=== PATIENT | female | born 1995 | race Caucasian/White ===

== ENCOUNTER 2022-02-08 21:22 | Emergency (ER) | payer OTHER, MEDICAID, SELFPAY ==
[2022-02-08 21:27] VITALS: BP 126/63; PULSE 85; RESP 18; TEMP 36.9; O2SAT 100
--- NOTE | 2022-02-08 21:30 | DI.RAD.S_ITS ---
PROCEDURE: XR HIP W PEL IF DONE LT 2V INDICATIONS: trauma TECHNIQUE: AP pelvis with lateral view of the left hip. COMPARISON: None. FINDINGS: Bones: No displaced fractures or dislocations. Pelvic ring appears intact. No suspicious bony lesions. Soft tissues: The visualized bowel gas pattern is normal. No suspicious soft tissue calcifications. An IUD is present in the pelvis. IMPRESSION: 1. No displaced fracture or dislocation. Dictated by: Chico Blum M.D. on 02/08/2022 at 22:28 Approved by: Chico Blum M.D. on 02/08/2022 at 22:29
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
[2022-02-08] MEDS: IBUPROFEN 400 MG TABLET 800 MG PO (23:24)
== END 2022-02-08 23:33 | disposition home or self-care (01) ==
PROVIDERS: Emergency Provider Emergency Medicine
DX: S70.02XA Contusion of left hip, initial encounter (principal); V13.4XXA Pedal cycle driver injured in collision with car, pick-up truck or van in traffic accident, initial encounter
CPT/HCPCS: 73502; 99283

== ENCOUNTER 2023-05-23 14:46 | Emergency (ER) | payer OTHER, MEDICAID, SELFPAY ==
[2023-05-23 14:50] VITALS: BP 130/76; PULSE 102; RESP 17; TEMP 37.2; O2SAT 95; BMI 32.8
[2023-05-23 15:57] VITALS: BP 125/76; PULSE 92; RESP 20; O2SAT 98
[2023-05-23] MEDS: TET,DIPH,PERTUSS(ACELL),VAC/PF 0.5 ML SYRINGE IM (16:07)
--- NOTE | 2023-05-24 12:58 | ED_ITS ---
HPI - Wound/Laceration <Omar Mercedes PA-C - Last Filed: 05/24/23 13:03> General Chief Complaint: Wound/Laceration Stated Complaint: cut finger r hand pinky need stitches Time Seen by Provider: 05/23/23 15:04 Source: patient Mode of arrival: Ambulatory History of Present Illness HPI narrative: 28-year-old female presents to the ED status post a right hand injury sustained just prior to arrival. Patient was washing dishes, when a glass accidentally broke, injuring her right hand. Patient has a small flap injury to the right pinky finger. Bleeding is controlled with pressure. Patient has full range of motion. Tetanus unknown. Related Data Allergies Allergy/AdvReac Type Severity Reaction Status Date / Time No Known Drug Allergies Allergy Verified 05/23/23 14:50 Review of Systems <Omar Mercedes PA-C - Last Filed: 05/24/23 13:03> Constitutional Constitutional: Denies chills, Denies fatigue, Denies fever(s), Denies frequent falls, Denies lethargy and Denies weakness Eyes Eyes: Denies change in vision, Denies eye discharge, Denies irritation and Denies loss of vision ENT Ears, Nose, Mouth, and Throat: Denies change in voice, Denies dizziness, Denies neck pain, Denies sore throat and Denies throat swelling Cardiovascular Cardiovascular: Denies chest pain, Denies irregular heart rhythm, Denies lightheadedness, Denies palpitations, Denies dyspnea, Denies dyspnea on exertion and Denies orthopnea Respiratory Respiratory: Denies cough, Denies dyspnea, Denies dyspnea on exertion and Denies wheezing Gastrointestinal Gastrointestinal: Denies abdominal pain, Denies change in bowel habits, Denies diarrhea, Denies nausea and Denies vomiting Musculoskeletal Musculoskeletal: Denies neck pain and Denies numbness Integumentary/Breasts Skin/Breast: Denies pruritus, Denies erythema, Denies rash and Denies wounds Comments: Right pinky laceration Neurologic Neurologic: Denies behavioral changes, Denies confusion, Denies dizziness, Denies frequent falls, Denies loss of vision, Denies numbness and Denies weakness Psychiatric Psychiatric: Denies anxiety, Denies behavioral changes, Denies confusion, Denies depression, Denies homicidal ideation and Denies suicidal ideation Endocrine Endocrine: Denies fatigue, Denies flushing and Denies palpitations Hematologic/Lymphatic Hematologic/Lymphatic: Denies easy bruising Allergic/Immunologic Allergic/Immunologic: Denies urticaria, Denies throat swelling and Denies wheezing Patient History <Omar Mercedes PA-C - Last Filed: 05/24/23 13:03> Medical History (Updated 05/23/23 @ 16:10 by Omar Mercedes PA-C) Healthy adult tobacco type: vaping alcohol intake frequency: holidays/special occasions only Exam <Omar Mercedes PA-C - Last Filed: 05/24/23 13:03> Narrative Exam Narrative: Const General:?cooperative, healthy appearing and comfortable [facility] Head:?normal to inspection Ears:?hearing grossly normal bilaterally Nose:?external nose normal Face and sinus:?normal facial exam and sinuses nontender Mouth:?oral mucosae normal Throat:?posterior oropharynx normal Eyes General:?appearance normal, both eyes and all related structures Neck Neck:?normal visual inspection and no lymphadenopathy noted Resp Effort & Inspection:?normal respiratory effort Auscultation:?clear to auscultation bilaterally Cardio Rate:?regular rate Rhythm:?regular rhythm Integumentary There is a small flap laceration to the right pinky finger. Bleeding is controlled with pressure. There is full range of motion. Strength and sensation is intact. Patient is neurovascularly intact. Neuro General:?patient alert, patient awake and patient oriented x3 Initial Vital Signs Initial Vital Signs: Vital Signs Temperature 98.9 F 05/23/23 14:50 Pulse Rate 102 H 05/23/23 14:50 Respiratory Rate 17 05/23/23 14:50 Blood Pressure 130/76 05/23/23 14:50 Pulse Oximetry 95 05/23/23 14:50 Oxygen Delivery Method Room Air 05/23/23 14:50 <Naty Soriano DO - Last Filed: 05/24/23 13:30> Initial Vital Signs Initial Vital Signs: Vital Signs Temperature 98.9 F 05/23/23 14:50 Pulse Rate 102 H 05/23/23 14:50 Respiratory Rate 17 05/23/23 14:50 Blood Pressure 130/76 05/23/23 14:50 Pulse Oximetry 95 05/23/23 14:50 Oxygen Delivery Method Room Air 05/23/23 14:50 Procedures <Omar Mercedes PA-C - Last Filed: 05/24/23 13:03> Laceration Repair Laceration 1: Site: hand Side (If applicable): right Size (cm): 1 Description: flap Depth: simple, single layer Pre-repair: wound explored, irrigated extensively and deep structures intact Skin layer closed with: steri-strips Course <Omar Mercedes PA-C - Last Filed: 05/24/23 13:03> Orders Ordered: Discontinued Medications Diphtheria/Tetanus/Acell Pertussis (Tet,Diph,Pertuss(Acell),Vac/Pf 0.5 Ml Syringe) 0.5 ml IM .ONCE ONE Stop: 05/23/23 15:26 Last Admin: 05/23/23 16:07 Dose: 0.5 ml Documented By: SPF <Naty Soriano DO - Last Filed: 05/24/23 13:30> Orders Ordered: Discontinued Medications Diphtheria/Tetanus/Acell Pertussis (Tet,Diph,Pertuss(Acell),Vac/Pf 0.5 Ml Syringe) 0.5 ml IM .ONCE ONE Stop: 05/23/23 15:26 Last Admin: 05/23/23 16:07 Dose: 0.5 ml Documented By: SPF MDM - Wound/Laceration <Omar Mercedes PA-C - Last Filed: 05/24/23 13:03> MDM Narrative Medical decision making narrative: 28-year-old female presents to the ED status post a right hand injury sustained just prior to arrival. Laceration was repaired with Steri-Strips and Dermabond. A finger splint was applied to keep the finger from bending to promote healing. Tetanus was updated. Signs of infection, wound care discussed with patient. ED return precautions discussed with patient. Patient verbalized understanding. Medical records reviewed: Yes Discharge Plan Departure Patient Disposition: Home Clinical Impression: Laceration Instructions: DI for Laceration Repair Activity Restrictions/Additional Instructions: You were evaluated in the ED today for a finger injury. Your laceration was repaired with Steri-Strips and glue. A finger splint has been applied to keep the finger from bending as your wound heals. Keep the wound clean and dry. Return to the ED if you note signs of infection including worsening redness, pain, warmth, swelling, discharge. Please follow-up with your PCP as soon as possible. Your tetanus was updated today as well, and should be good for the next 10 years. Stand Alone Forms: Patient Portal/API ED Sign-out <Naty Soriano DO - Last Filed: 05/24/23 13:30> Cosign ED Attending Cosignature Attestation: I was available for consultation.
== END 2023-05-23 16:19 | disposition home or self-care (01) ==
PROVIDERS: Emergency Provider Student in an Organized Health Care Education/Training Program
DX: S61.216A Laceration without foreign body of right little finger without damage to nail, initial encounter (principal); W25.XXXA Contact with sharp glass, initial encounter; Z23 Encounter for immunization
CPT/HCPCS: 12001; 90471; 99283; 90715